=== PATIENT | male | born 1990 | race Two or more races ===

== ENCOUNTER 2021-04-03 17:31 | Emergency (ER) | payer SELFPAY | END 2021-04-03 21:25 | disposition left against medical advice (07) | LOC: EMS 17:34 | DX: Z00.00 Encounter for general adult medical examination without abnormal findings (principal); Z53.21 Procedure and treatment not carried out due to patient leaving prior to being seen by health care provider ==

== ENCOUNTER 2024-04-10 00:26 | Inpatient (IN) | payer MEDICAID ==
[~2024-04-10] VITALS: Ht 175.3 cm; Wt 81.0 kg
[2024-04-10 01:44] LABS: BASOPHILS % (AUTO) 0.4 % (0.0-2.0); EOSINOPHILS % (AUTO) 1.6 % (1.0-6.0); HEMATOCRIT 39.2 % (41-53); HEMOGLOBIN 12.9 g/dL (13.5-17.5); LYMPHOCYTES # (AUTO) 1.9 K/uL (1.0-4.8); MEAN CORPUSCULAR HEMOGLOBIN 31.2 pg (26.0-34.0); MEAN CORPUSCULAR HGB CONC 32.9 G/dL (31.0-37.0); MEAN CORPUSCULAR VOLUME 95 fL (80-100); MONOCYTES # (AUTO) 1.1 K/uL (0.1-1.0); MONOCYTES % (AUTO) 10.5 % (2.0-9.0); NEUTROPHILS # (AUTO) 6.9 K/uL (1.8-7.7); NEUTROPHILS % (AUTO) 68.5 % (40.0-70.0); PLATELET COUNT (AUTO) 230 K/uL (150-450); RED BLOOD CELL COUNT(AUTO) 4.14 MIL/uL (4.50-5.90); RED CELL DISTRIBUTION WIDTH 14.3 % (11.5-14.5); WHITE BLOOD COUNT (AUTO) 10.1 K/uL (4.5-11.0)
[2024-04-10 01:44] LABS: COVID AG,FIA SOURCE NASAL SWAB
[2024-04-10 01:55] LABS: ANION GAP 8 mmol/L (8-16); CALCIUM, TOTAL 8.9 mg/dL (8.8-10.5); CARBON DIOXIDE 29 mmol/L (22-29); CHLORIDE 105 mmol/L (98-107); GLOMERULAR FILTR. RATE CALC > 60 mL/min (>60); GLUCOSE,RANDOM 101 mg/dL (70-110); POTASSIUM 3.9 mmol/L (3.5-5.1); SODIUM SERUM 142 mmol/L (136-145); UREA NITROGEN, BLOOD 10 mg/dL (7-18)
[2024-04-10 02:03] LABS: SARS-COV2 (COVID) ANTIGEN,FIA Negative (Negative)
[2024-04-10 02:04] LABS: ALCOHOL, URINE DRUG SCREEN NEGATIVE (NEGATIVE); AMPHET/METH SCREEN,URINE POSITIVE (NEGATIVE); BARBITURATE SCREEN, URINE NEGATIVE (NEGATIVE); BENZODIAZEPINES SCREEN,URINE NEGATIVE (NEGATIVE); CANNABINOID SCREEN,URINE POSITIVE (NEGATIVE); COCAINE SCREEN,URINE NEGATIVE (NEGATIVE); METHADONE SCREEN, URINE NEGATIVE (NEGATIVE); OPIATE SCREEN,URINE NEGATIVE (NEGATIVE); PHENCYCLIDINE SCREEN,URINE NEGATIVE (NEGATIVE)
[2024-04-10 02:09] LABS: ALCOHOL, BLOOD (SERUM) < 3 mg/dL (0-10)
[2024-04-10] MEDS: DiphenhydrAMINE HCL 25 MG CAPSULE PO ONE (02:26)
[2024-04-10] MEDS: LORazepam 2 MG TABLET PO ONE (02:26)
[2024-04-10] MEDS: HALOPERIDOL 5 MG TABLET PO ONE (02:26)
[2024-04-10] MEDS ORDERED: HALOPERIDOL 5 MG TABLET PO PRN (02:45)
[2024-04-10 07:04] VITALS: O2SAT 98
[2024-04-10 11:22] VITALS: BP 98/64; PULSE 76; RESP 18; TEMP 97.9; O2SAT 100
[2024-04-10] MEDS ORDERED: INFLUENZA VIRUS VACCINE TVS (6MO+) 2024-25/PF 45 MCG/0.5 ML SYRINGE IM. ONE (13:00)
[2024-04-10] MEDS ORDERED: PNEUMOCOCCAL VACCINE POLYVALENT 0.5 ML SYRINGE [PPSV23] IM. ONE (17:15)
[2024-04-10 21:21] VITALS: RESP 18
[2024-04-11 08:19] VITALS: BP 99/65; PULSE 78; RESP 18; TEMP 96.9; O2SAT 96
[2024-04-11 10:57] VITALS: BP 118/68; PULSE 82; RESP 18
[2024-04-11] MEDS: LORazepam 2 MG TABLET PO PRN (10:58)
[2024-04-11] MEDS ORDERED: RisperiDONE 2 MG TABLET PO SCH (12:45)
[2024-04-11] MEDS: QUEtiapine FUMARATE 200 MG TABLET PO SCH (14:36)
[2024-04-11 20:24] VITALS: BP 95/56; PULSE 58; RESP 18; TEMP 97.2; O2SAT 96
[2024-04-11] MEDS: ZOLPIDEM TARTRATE 10 MG TABLET PO PRN (20:42)
[2024-04-12 08:22] VITALS: BP 103/58; PULSE 82; RESP 16; TEMP 97.7; O2SAT 98
[2024-04-12] MEDS ORDERED: QUET200T30 PO (15:15)
[2024-04-12 20:27] VITALS: BP 99/54; PULSE 95; RESP 18; TEMP 97.6; O2SAT 97
== END 2024-04-13 08:00 | disposition home or self-care (01) | DRG 753 ==
LOC: EMS 00:26 → 3EC 11:53
PROVIDERS: ADMIT Psychiatry & Neurology Psychiatry; ATTEND Psychiatry & Neurology Psychiatry
PROC: GZHZZZZ Group Psychotherapy (ICD-10-PCS; principal; 2024-04-11)
PROC: GZ51ZZZ Individual Psychotherapy, Behavioral (ICD-10-PCS; 2024-04-11)
DX: F31.4 Bipolar disorder, current episode depressed, severe, without psychotic features (principal); R45.851 Suicidal ideations; F29 Unspecified psychosis not due to a substance or known physiological condition; F15.10 Other stimulant abuse, uncomplicated; Z20.822 Contact with and (suspected) exposure to COVID-19; F12.10 Cannabis abuse, uncomplicated; D64.9 Anemia, unspecified; F41.9 Anxiety disorder, unspecified; Z79.899 Other long term (current) drug therapy; Z87.891 Personal history of nicotine dependence; Z88.2 Allergy status to sulfonamides
CPT/HCPCS: 80048; 80307; 85025; 99285; G0480